=== PATIENT | female | born 1945 | race Caucasian/White ===

== ENCOUNTER → 2023-10-28 | Outpatient (REF) | payer OTHER, SELFPAY | LOC: DHSLP | PROVIDERS: ATTENDING PHYSICIAN Internal Medicine Cardiovascular Disease; FAMILY PHYSICIAN Internal Medicine | DX: G47.33 Obstructive sleep apnea (adult) (pediatric) (principal) | CPT/HCPCS: 95800 ==

== ENCOUNTER → 2024-02-25 09:14 | Outpatient (REF) | payer OTHER, SELFPAY ==
--- NOTE | 2024-02-25 09:49 | PTCARENOTE ---
22P RAC. agitated saline contrast echo completed under direction echosonographer. tolerated.
== END ==
LOC: RCS 09:14
PROVIDERS: ATTENDING PHYSICIAN Internal Medicine Cardiovascular Disease; FAMILY PHYSICIAN Internal Medicine
DX: I48.0 Paroxysmal atrial fibrillation (principal); I27.20 Pulmonary hypertension, unspecified
CPT/HCPCS: 93306

== ENCOUNTER → 2024-06-02 11:53 | Outpatient (REF) | payer OTHER, SELFPAY | LOC: HWRAD 11:53 | PROVIDERS: ATTENDING PHYSICIAN Internal Medicine Cardiovascular Disease; FAMILY PHYSICIAN Internal Medicine | DX: I27.20 Pulmonary hypertension, unspecified (principal); Z79.899 Other long term (current) drug therapy | CPT/HCPCS: 71046 ==

== ENCOUNTER → 2025-03-31 15:41 | Outpatient (REF) | payer OTHER, SELFPAY | LOC: HWRCS 15:41 | PROVIDERS: ATTENDING PHYSICIAN Internal Medicine Cardiovascular Disease; FAMILY PHYSICIAN Internal Medicine | DX: I10 Essential (primary) hypertension (principal); I34.0 Nonrheumatic mitral (valve) insufficiency; I27.20 Pulmonary hypertension, unspecified; I51.7 Cardiomegaly | CPT/HCPCS: 93306 ==